=== PATIENT | female | born 1945 ===

== ENCOUNTER 2023-05-27 12:31 | Emergency (ER) | payer OTHER ==
[~2023-05-27] VITALS: Ht 157.5 cm; Wt 55.8 kg
== END 2023-05-27 17:28 | disposition home or self-care (01) ==
LOC: ER 12:31
DX: R07.89 Other chest pain (principal); C50.919 Malignant neoplasm of unspecified site of unspecified female breast; I10 Essential (primary) hypertension; Z20.822 Contact with and (suspected) exposure to COVID-19; J90 Pleural effusion, not elsewhere classified